=== PATIENT | female | born 1975 | race African-American/Black ===

== ENCOUNTER 2017-02-07 13:37 | Emergency (ER) | payer SELFPAY ==
[~2017-02-07] VITALS: Ht 180.3 cm; Wt 149.0 kg
[2017-02-07 14:09] VITALS: BP 133/82
== END 2017-02-07 16:34 | disposition left against medical advice (07) ==
LOC: ER 16:08
DX: R05 Cough (principal); Z53.21 Procedure and treatment not carried out due to patient leaving prior to being seen by health care provider